=== PATIENT | male | born 1980 | race African-American/Black ===

== ENCOUNTER 2016-12-24 09:36 | Emergency (ER) | payer OTHER ==
[2016-12-24 10:12] VITALS: BP 143/86; PULSE 62; TEMP 98.2; BMI 25.0
--- NOTE | 2016-12-24 10:34 | PDOC ---
Suture Removal/Wound Check HPI - History of Present Illness Chief Complaint: Suture/Staple Removal(Here) Stated Complaint: SUTURE REMOVAL Time Seen by Provider: 12/24/16 10:14 History Source: Yes: Patient Exam Limitations: Yes: No Limitations Treated at: [facility] Date of Last ED visit: 12/14/16 - Previous ED Treatment Type of procedure performed on last visit: Yes: Laceration Repair (left hand) Past History - Past Medical History Allergies/Adverse Reactions: Allergies No Known Allergies Allergy (Verified 12/24/16 09:59) Home Medications: Ambulatory Orders NK [No Known Home Medication] 12/14/16 General: Yes: no pertinent history - Immunization History Tetanus Status: Unknown - Social History Smoking Status: Never smoked Suture Removal/Wound Check PE - Physical Exam Laceration/Wound Check Symptoms: reports: None Comments: 12/24/16 10:35 left hand at the dorsal side over the second MCP 5 sutures intact well healed Current Severity Level: None Maximum Severity Level: None Pain Localization: None Comments: 12/24/16 10:35 FROM of the second digit no imitations strength 5/5 nv intact Medical Decision Making - Medical Decision Making 12/24/16 10:36 cc: suture removal left hand sutures removed skin intact bandaid placed *DC/Admit/Observation/Transfer Diagnosis at time of Disposition: Visit for suture removal - Discharge Dispostion Disposition: HOME Condition at time of disposition: Good - Patient Instructions Printed Discharge Instructions: DI for Suture Removal
== END 2016-12-24 10:36 | disposition home or self-care (01) ==
LOC: JERFT 09:36
DX: Z48.02 Encounter for removal of sutures (principal)
CPT/HCPCS: 99281-25